=== PATIENT | female | born 1975 | race Caucasian/White ===

== ENCOUNTER 2023-09-01 19:08 | Inpatient (IN) | payer OTHER ==
[~2023-09-01] VITALS: Ht 162.6 cm; Wt 43.0 kg
[2023-09-01] MEDS ORDERED: LEVSOD25 PO (21:45)
[2023-09-01] MEDS ORDERED: ALBU90OI INH (21:46)
[2023-09-01 22:00] VITALS: BP 133/92
[2023-09-01] MEDS ORDERED: NS 1,000 ML IV SCH (22:25)
[2023-09-01] MEDS ORDERED: Ondansetron HCl 2 MG / ML 2ML Vial IV PRN (22:25)
[2023-09-01] MEDS ORDERED: Ipratropium/Albuterol SulF 2.5-0.5MG/3 ML Amp INH PRN (22:25)
[2023-09-01 22:30] VITALS: BP 135/83
[2023-09-01 22:57] LABS: International Normalized Ratio 1.05; Prothrombin Time Results 11.2 Sec (9.7-11.5)
[2023-09-01 23:00] VITALS: BP 132/88
[2023-09-01] MEDS ORDERED: Enoxaparin 40 MG/0.4 ML SYR SC SCH (23:00)
[2023-09-01 23:01] LABS: Free Thyroxine 1.06 ng/dL (0.70-1.60); Magnesium, Blood 2.8 mg/dL (1.6-2.4); Thyroid Stimulating Hormone 0.146 uIU/mL (0.360-4.800)
[2023-09-01 23:30] VITALS: BP 133/95
[2023-09-02] VITALS (74 sets, daily range): BP systolic 97–170; BP diastolic 60–134
[2023-09-02] MEDS ORDERED: MethylPREDNISolone Sod Succ 125 MG Vial IV SCH
[2023-09-02] MEDS ORDERED: Albuterol 2.5 MG/3 ML VIAL INH PRN ×2 (00:15→23:55)
[2023-09-02] MEDS ORDERED: Ipratropium/Albuterol SulF 2.5-0.5MG/3 ML Amp INH SCH (03:00)
[2023-09-02 03:26] LABS: BASOPHILS ABSOLUTE AUTO 0.01 K/mm3 (0.00-0.23); BASOPHILS PERCENT AUTO 0 % (0-2); EOSINOPHILS PERCENT AUTO 0 % (0-6); Hematocrit 43.9 % (33.0-51.0); Hemoglobin 14.6 g/dL (11.5-16.0); IMMATURE GRAN ABSOLUTE AUTO 0.02 K/mm3 (0.00-0.10); IMMATURE GRAN PERCENT AUTO 0 % (0-1); LYMPHOCYTES ABSOLUTE AUTO 0.51 K/mm3 (0.84-5.20); LYMPHOCYTES PERCENT AUTO 5 % (21-46); MONOCYTES ABSOLUTE AUTO 0.22 K/mm3 (0.16-1.47); MONOCYTES PERCENT AUTO 2 % (4-13); Mean Corpuscular HGB 29.8 pg (26.0-34.0); Mean Corpuscular HGB Conc 33.3 g/dL (31.5-36.5); Mean Corpuscular Volume 90 fL (80-100); Mean Platelet Volume 10.9 fL (9.1-12.4); NEUTROPHILS ABSOLUTE AUTO 8.79 K/mm3 (1.96-9.15); NEUTROPHILS PERCENT AUTO 92 % (41-73); Platelet Count 211 K/mm3 (150-400); RDW Coefficient Variation 13.8 % (11.7-14.2); RDW Standard Deviation 44.7 fL (35.1-46.3); White Blood Cell Count 9.55 K/mm3 (4.00-11.30)
[2023-09-02] MEDS ORDERED: Albuterol 2.5 MG/3 ML VIAL INH ONE (03:45)
[2023-09-02] MEDS ORDERED: Budesonide 0.5 MG/2 ML RESP INH SCH (03:50)
[2023-09-02] MEDS ORDERED: LORazepam 2 MG/ML 1ML Injection IV ONE (03:50)
[2023-09-02] MEDS ORDERED: LORazepam 2 MG/ML 1ML Injection IV PRN (03:50)
[2023-09-02 03:51] LABS: Albumin, Blood 3.7 g/dL (3.4-5.0); Bilirubin, Total 0.3 mg/dL (0.1-1.0); Bun/Creatinine Ratio 34.9 (12.0-20.0); Calcium, Blood 9.2 mg/dL (8.5-10.1); Creatinine, Blood 0.49 mg/dL (0.40-1.00); Globulin, Blood 3.8 g/dL (2.2-4.0); Potassium, Blood 4.5 mmol/L (3.5-5.5); Total Protein, Blood 7.5 g/dL (6.4-8.2)
--- NOTE | 2023-09-02 05:58 | NUR ---
PATIENT ADMITTED TO ICU OVERNIGHT. AOX4 AND MOVES ALL EXTREMITIES. SR WITH STABLE BP. 2L NC AND REQUIRED SEVERAL ALBUTEROL TREAMTMENTS. NPO.
--- NOTE | 2023-09-02 07:27 | NUR ---
CARE OF PT ASSUMED AT 0700, BEDSIDE REPORT TAKEN. RT AT BEDSIDE GIVING BREATHING TX (PULMICORT AND DUO NEB). PT IN TRIPOD POSITION. RESP HIGH 30'S. INSP EXP WHEEZES T/O, ALSO TIGHT. FINE CRACKLES TO LEFT SIDE. NS AT 75/HR. TACHY 120-130'S, HTN. DR STEWART CALLED, STAT VBG AND CHEST XRAY ORDERED.
--- NOTE | 2023-09-02 07:42 | NUR ---
SATS 92-95% ON 4L AFTER BREATHING TREATMENT; 88-92% PRIOR TO TREATMENT. CHEST XRAY COMPLETE, AWAITING RESULTS FOR VBG.
[2023-09-02 07:59] LABS: Base Excess Venous 1.5 mmol/L; Bicarbonate Venous 24.3 mmol/L (24.0-30.0); PCO2 Venous 61.6 mmHg (38-42); pH Blood Venous 7.27 (7.34-7.37)
--- NOTE | 2023-09-02 08:19 | NUR ---
CRITICAL PH OF 7.[address] STEW[address]. DR STEWART AT BEDSIDE TO SEE PT. REPEAT VBG ORDERED FOR 1000. MS ORDERED FOR HEADACHE. CPT ORDERED. PUREWICK TO BE PLACED.
[2023-09-02] MEDS ORDERED: Morphine Sulfate 4 MG/1 ML Injection IV PRN (08:20)
[2023-09-02] MEDS ORDERED: Levothyroxine Sodium 0.025 MG Tab PO SCH (09:00)
[2023-09-02] MEDS ORDERED: Azithromycin 500 MG in NS 250 ML IV SCH (09:00)
[2023-09-02 09:58] LABS: PCO2 Venous 53.7 mmHg (38-42); pH Blood Venous 7.32 (7.34-7.37)
[2023-09-02 09:59] LABS: Base Excess Venous 1.6 mmol/L; Bicarbonate Venous 24.9 mmol/L (24.0-30.0)
--- NOTE | 2023-09-02 11:10 | NUR ---
REPEAT VBG IMPROVED. PT HAS RECEIVED MULTIPLE BREATHING TREATMENTS FROM RT. CPT BY RT. KELSEY IN PLACE. MORPHINE HELPED HEADACHE WELL RELAXED HER BREATHING, PT LAYING BACK IN HIGH FOWLERS. INSP/EXP WHEEZES REMAIN BUT LUNGS OVVERALL ARE LESS TIGHT. SATS STABLE ON AIRVO AT 20L/30%. HEART RATE, BP, AND SATS ALL IMPROVED.
--- NOTE | 2023-09-02 13:34 | NUR ---
PUREWICK CANISTER WITH ONLY 50CC URINE. PT DOES NOT FEEL THE NEED TO VOID. BLADDER SCAN SHOWS 798. PT DOES NOT TOLERATE ANY ACTIVITY. DR STEWART CALLED AND GIVEN UPDATE. PRECEDEX AND BIPAP ORDERED IF NEEDED. MARTINEZ TO BE PLACED. VSS, PT LESS LABORED BUT STILL NEEDS TO BE IN TRIPOD POSITION, RESP RATE 30'S. WHEEZES T/O.
--- NOTE | 2023-09-02 15:35 | NUR ---
MORPHINE 2MG BROUGHT IN TO ROOM PRIOR TO PLACING PT BACK FOR MARTINEZ PLACEMENT, PT HAD NEAR 800CC ON BLADDER SCAN AND WAS UNABLE TO VOID. PT REQUESTED TO WAIT ON MORPHINE AND WAS ABLE TO VOID 400CC VIA WICKING SYSTEM. MS LYNDSEY DWYER RN. RT AT BEDSIDE GIVING UPDRAFT. LUNGS CONTINUE TO HAVE WHEEZING T/O, BUT AGAIN RESP'S MUCH LESS LABORED THAN THIS MORNING. PT ABLE TO LAY BACK A LITTLE MORE WITHOUT FEELING TOO SHORT OF BREATH.
--- NOTE | 2023-09-02 17:11 | NUR ---
PT USED CALL LIGHT TO NOTIFIED RN OF WORSENING SOB. WORK OF BREATHING HAS INCREASED BUT PT REMAINS CALM. SATS DOWN TO 90% ON AIRVO. RT AT BEDSIDE AND GAVE UDN. LUNGS VERY TIGHT WITH DECREASED AIR MOVEMENT T/O, WITH LITTLE IMPROVEMENT AFTER BREATHING TX. SATS DID INCREASE AFTER TX TO 97%. PRECEDEX STARTED AT 0.2MCG BIPAP WOULD BE NEXT TREATMENT OPTION. PT AGREE'S TO TRIAL PRECEDEX AND BIPAP.
[2023-09-02] MEDS ORDERED: NS 1,000 ML IV SCH (17:30)
--- NOTE | 2023-09-02 17:51 | NUR ---
PRECEDEX AT 0.4MCG. PT CALM AND RELAXED. RT ABLE TO PLACE BIPAP ON PT, /, RATE 14, 30% FIO2. PT CHINO WELL SO FAR. NS CONTINUES AT 75CC/HR.
--- NOTE | 2023-09-02 19:39 | NUR ---
ASSUMED CARE PT TRIPODDING WHEN FIRST ARRIVING ON SHIFT. PT REQUESTED BREAK FROM BIPAP TO AIRVO; EDUCATED PT ON IMPORTANCE OF KEEPING BIPAP ON MUCH POSSIBLE. SATS ARE MAINTAINING >92%. CURRENTLY SITTING QUIETLY W/ FIANCE AT BEDSIDE.
--- NOTE | 2023-09-02 19:58 | NUR ---
UPDATE PT OFF AIRVO AND BACK ON CPAP (RT CHANGE SETTINGS), RESTING QUIETLY AT THIS TIME.
--- NOTE | 2023-09-02 20:18 | NUR ---
UPDATE PT IS CURRENTLY RESTING OVER BEDSIDE TABLE; PT NODS HEAD WHEN ASKED IF WOB IS BETTER. APPEARS LESS DYSPNEIC AT THIS TIME.
--- NOTE | 2023-09-02 20:27 | NUR ---
UPDATE PT NOT TOLERATING CPAP; BECOMING MORE ANXIOUS AND REQUESTED AIRVO AGAIN. EDUCATION GIVEN ON IMPORTANCE OF CPAP/BIPAP; PT STATES SHE UNDERSTANDS AND IS WILLING TO TRY IT ON "LATER".
[2023-09-02 23:05] LABS: Base Excess Venous 3.5 mmol/L; PCO2 Venous 45.2 mmHg (38-42); pH Blood Venous 7.41 (7.34-7.37)
[2023-09-03] VITALS (53 sets, daily range): BP systolic 99–148; BP diastolic 64–105
[2023-09-03] MEDS ORDERED: LORazepam 2 MG/ML 1ML Injection IV ONE ×2 (00:45)
--- NOTE | 2023-09-03 01:05 | NUR ---
UPDATE PT BACK ON BIPAP; TITRATING PRECEDEX TO ASSIST W/ COMPLIANCE. PT SATS MAINTAINED >92% ON AIRVO SINCE PT REQUESTED REMOVAL OF CPAP. PT RIGHT BEFORE THIS NOTE STATED SHE COULD NOT BREATHE AND BIPAP WAS PUT ON W/ BREATHING TREATMENT GIVEN BY RT. PT CONFIRMS THAT SHE IS LESS DYSPNEIC AT THIS TIME. SATS >92% AT THIS TIME.
--- NOTE | 2023-09-03 02:19 | NUR ---
UPDATE DR BRUNSON AT BEDSIDE TO ASSESS PT W/ ORDERS FOR 0400 VBG. PT IS STILL CURRENTLY ON BIPAP W/ PRECEDEX INFUSING.
[2023-09-03 04:00] LABS: PCO2 Venous 43.8 mmHg (38-42)
[2023-09-03 04:01] LABS: Base Excess Venous 2.2 mmol/L
[2023-09-03 04:29] LABS: Bun/Creatinine Ratio 66.4 (12.0-20.0); Calcium, Blood 8.8 mg/dL (8.5-10.1); Creatinine, Blood 0.47 mg/dL (0.40-1.00); Potassium, Blood 5.1 mmol/L (3.5-5.5)
[2023-09-03] MEDS ORDERED: GuaiFENesin 100 MG/5 ML 5ML UDC PO PRN (05:10)
[2023-09-03 05:16] LABS: Magnesium, Blood 2.6 mg/dL (1.6-2.4)
--- NOTE | 2023-09-03 05:44 | NUR ---
SHIFT SUMMARY PT IS RESTING QUIETLY AT THIS TIME ON BIPAP 10/5 30%; PRECEDEX INFUSING. PT TOLERATING BIPAP W/ REQUESTS FOR 5~MINUTE BREAKS INTERMITTENTLY. PT CONTINUES TO COMPLAIN OF DYSPNEA, BUT WOB APPEARS TO BE LESS THAN AT START OF SHIFT. MORPHINE AND PRECEDEX APPEARS TO WORK WELL. FIANCE AT BEDSIDE T/O SHIFT. DR BRUNSON BY AGAIN THIS AM TO ASSESS PT W/ ORDER FOR PULMONARY CONSULT. LUNG SOUNDS APPEAR TO REMAIN UNCHANGED FROM START OF SHIFT.
--- NOTE | 2023-09-03 08:05 | NUR ---
ASSUMED CARE / DR STEWART: REPORT RECEIVED FROM RODRIGO Ellison RN. ASSUMED CARE OF THIS PT AT APPROX 0700. ON ASSESSMENT, THE PT IS RESTING QUIETLY W/ PRECEDEX INFUSING AT 1.2 MCG/KG/HR. SHE AWAKENS TO VERBAL STIMULUS & IS ABLE TO FOLLOW DIRECTIONS EASILY BUT REMAINS DROWSY W/ RASSS -1/0, A&O TO ALL. LS TIGHT/ WHEEZING T/O, DIM IN BASES. PT ON BIPAP W/ SETTINGS: 10/5 & 30% FIO2, OVERALL TOLERATING WELL W/ PRECEDEX INFUSING. USES AIRVO W/ SETTINGS: 35 L/MIN & 29% FIO2 WHEN TAKING A BREAK FROM BIPAP. MONITOR SHOWS SA W/ HR 60-70s, BP STABLE. NPO R/T RESPIRATORY STATUS, TOLERATING SMALL SIPS OF WATER W/O DIFFICULTY. HX URINARY RETENTION W/ STRAIGHT CATH x1 LAST NIGHT, BLADDER SCAN PRN. SKIN CONDITION OVERALL INTACT, Q2H REPOSITIONING TO MAINTAIN SKIN INTEGRITY. DR STEWART HAS ROUNDED THIS MORNING & VERIFIED THAT DR HOOK WAS CONSULTED LAST NIGHT FOR THIS PT. NO CHANGES AT THIS TIME. WILL CONTINUE TO MONITOR & UPDATE NEEDED.
[2023-09-03] MEDS ORDERED: NS 250 ML IV PRN (09:55)
--- NOTE | 2023-09-03 11:30 | NUR ---
DR HOOK: PROVIDER AT BEDSIDE TO EVAL PT THIS AM. HE HAS DISCUSSED CURRENT POC W/ THE PT & HER SIGNIFICANT OTHER AT BEDSIDE. CONTINUE BIPAP TOLERATED & PRECEDEX TO TREAT ANXIETY/ PROMOTE BIPAP TOLERANCE. AIRVO FOR BREAKS FROM BIPAP. SOME CHANGES MADE TO MEDICATION REGIMEN, OTHERWISE NO CHANGES AT THIS TIME.
[2023-09-03] MEDS ORDERED: Dornase Alfa 1 MG/ML Neb INH SCH (11:45)
[2023-09-03 13:30] LABS: Bicarbonate Venous 25.6 mmol/L (24.0-30.0); PCO2 Venous 46.5 mmHg (38-42); pH Blood Venous 7.38 (7.34-7.37)
[2023-09-03 17:54] LABS: Source, Urine Foley catheter
[2023-09-03 18:05] LABS: Appearance, Urine Clear (Clear); Bilirubin, Urine Neg (Neg); Blood, Urine Neg (Neg); Color, Urine Yellow (P-Yellow); Glucose Qualitative, Urine Neg (Neg); Ketones, Urine 3+ (Neg); Leukocyte Esterase, Urine Neg (Neg); Nitrite, Urine Neg (Neg); Protein, Urine 1+ (Neg); Specific Gravity, Urine 1.025 (1.003-1.022); Urobilinogen, Urine NORM (Normal)
--- NOTE | 2023-09-03 18:33 | NUR ---
SHIFT SUMMARY: NO ACUTE CHANGES SINCE PRIOR UPDATES. PT MOVED FROM ICU-02 TO ICU-15 AT APPROX 1810. SHE REMAINS SEDATED W/ PRECEDEX INFUSING AT 1.1 MCG/KG/HR, RASS -2/-3. AWAKENS TO TACTILE STIMULUS & IS ORIENTED AT THAT TIME. LS TIGHT/ WHEEZING T/O, DIM IN BASES. PT ON BIPAP W/ SETTINGS 14/6 & 30% FIO2, O2 SATS > 92% ON AVG. MONITOR SHOWS SA W/ HR 60-70s, BP STABLE. FULL LIQUID DIET ORDERED TOLERATED W/ GOAL TO GET NUTRITIONAL SUPPLEMENT INTAKE FOR PT WHEN ALERT ENOUGH. MARTINEZ PLACED THIS EVENING FOR CONTINUED URINARY RETENTION WHILE SEDATION INFUSING. SKIN OVERALL INTACT, Q2H REPOSITIONING TO MAINTAIN SKIN INTEGRITY. WILL CONTINUE TO MONITOR & REPORT OFF TO ONCOMING RN.
[2023-09-03] MEDS ORDERED: LORazepam 2 MG/ML 1ML Injection IV PRN (19:40)
--- NOTE | 2023-09-03 20:04 | NUR ---
ASSUMED CARE PT IS RESTING QUIETLY IN BED, LEANING FORWARD ON TABLE. TOLERATING BIPAP AT THIS TIME. HR IN THE 70'S, SPO2 >92%, MAP >65. PT CONTINUES TO BE ANXIOUS, BUT THERAPEUTIC COMMUNICATION APPEARS TO BE EFFECTIVE IN ADDITION TO PHARMACOLOGIC METHODS. PRECEDEX INFUSING W/ ATIVAN AND MORPHINE PRN. REDUCTION IN STIMULI ALSO APPEARS EFFECTIVE. EDUCATION GIVEN ON CARE PLAN AND DISEASE PROCESS. LUNG SOUNDS HAVE WHEEZES BILATERALLY AND TIGHT DIM BASES.
[2023-09-04] VITALS (36 sets, daily range): BP systolic 107–159; BP diastolic 71–109
--- NOTE | 2023-09-04 03:27 | NUR ---
UPDATE PT USED CALL LIGHT D/T FEELING UNABLE TO BREATHE. CURRENTLY ON BIPAP AND PT CONTINUES TO BE DYSPNEIC, BUT STATES IT'S "BETTER". AT TIME OF THIS NOTE PT HAS REQUESTED TO SWITCH FROM BIPAP > AIRVO D/T FEELING WOB WAS WORSE, W/ MINIMAL IMPROVEMENT ON SWITCH. SATS ARE MAINTAINING >92% AND PRECEDEX AT 1.4MCG/KG/HR. RESTING QUIETLY AT THIS TIME. SINUS RHYTHM/20~ RESPIRATORY RATE.
[2023-09-04 03:49] LABS: BASOPHILS ABSOLUTE AUTO 0.01 K/mm3 (0.00-0.23); BASOPHILS PERCENT AUTO 0 % (0-2); EOSINOPHILS PERCENT AUTO 0 % (0-6); Hematocrit 41.4 % (33.0-51.0); Hemoglobin 13.7 g/dL (11.5-16.0); IMMATURE GRAN ABSOLUTE AUTO 0.03 K/mm3 (0.00-0.10); IMMATURE GRAN PERCENT AUTO 0 % (0-1); LYMPHOCYTES ABSOLUTE AUTO 0.66 K/mm3 (0.84-5.20); LYMPHOCYTES PERCENT AUTO 8 % (21-46); MONOCYTES ABSOLUTE AUTO 0.53 K/mm3 (0.16-1.47); MONOCYTES PERCENT AUTO 6 % (4-13); Mean Corpuscular HGB 29.7 pg (26.0-34.0); Mean Corpuscular HGB Conc 33.1 g/dL (31.5-36.5); Mean Corpuscular Volume 90 fL (80-100); Mean Platelet Volume 11.5 fL (9.1-12.4); NEUTROPHILS ABSOLUTE AUTO 7.13 K/mm3 (1.96-9.15); NEUTROPHILS PERCENT AUTO 85 % (41-73); Platelet Count 178 K/mm3 (150-400); RDW Coefficient Variation 13.4 % (11.7-14.2); RDW Standard Deviation 44.6 fL (35.1-46.3); Red Blood Cell Count 4.61 M/mm3 (3.80-5.20); White Blood Cell Count 8.36 K/mm3 (4.00-11.30)
[2023-09-04 04:08] LABS: Bun/Creatinine Ratio 83.5 (12.0-20.0); Calcium, Blood 8.8 mg/dL (8.5-10.1); Creatinine, Blood 0.42 mg/dL (0.40-1.00); Magnesium, Blood 2.4 mg/dL (1.6-2.4); Phosphorus, Blood 2.8 mg/dL (2.5-4.9); Potassium, Blood 4.6 mmol/L (3.5-5.5)
--- NOTE | 2023-09-04 06:43 | NUR ---
SHIFT SUMMARY PT RESTED/SLEPT T/O MOST OF NIGHT W/ INTERMITTENT CALLS FOR BREAK ON AIRVO/BIPAP. PT CONTINUES TO BE ORIENTED X3 W/ PRECEDEX INFUSING. THIS AM PT STATING SHE CANNOT "CATCH A BREATH". DR CARTER CALLED AND UPDATED W/ ORDERS TO PLACE BIPAP BACK ON, 27/12 SETTINGS ON BIPAP. NO OTHER ORDERS AT THIS TIME. SATS CONTINUE TO MAINTAIN >92%; MAP >65; RATE IN THE 70-80'S AND RR IN THE 20'S.
--- NOTE | 2023-09-04 07:35 | NUR ---
ASSUMED CARE: REPORT RECEIVED FROM RODRIGO Ellison RN. ASSUMED CARE OF THIS PT AT APPROX 0700. ON ASSESSMENT, THE PT IS AWAKE & STS FEELING ANXIOUS, THAT SHE "CAN'T DO THIS ANYMORE" WHEN REFERRING TO WEARING THE BIPAP & FEELING SOB. PRECEDEX INFUSING AT 1.4 MCG/KG/HR, SEE EMAR FOR PRN MEDS GIVEN. LS TIGHT/ WHEEZING T/O, DIM IN BASES. PT ON BIPAP W/ CURRENT SETTINGS: 14/8 & 30% FIO2, O2 SATS > 92%. EDYTA Johansen, RT, AT BEDSIDE THIS AM ADJUSTING BIPAP TO PROMOTE PT COMFORT & TOLERANCE. MONITOR SHOWS SA W/ HR 80s, BP STABLE. PT HAS NO CURRENT GI COMPLAINTS, IS CURRENTLY NPO R/T RESPIRATORY STATUS & WOB. IF ABLE TO TAKE BREAK FROM BIPAP, PO INTAKE OF NUTRITIONAL SUPPLEMENTS WILL BE ENCOURAGED. MARTINEZ PATENT/ DRAINING YELLOW URINE. SKIN CONDITION OVERALL INTACT, REPOSITIONING ATTEMPTED BUT PT BEGINS TO EXPERIENCE WORSENING ANXIETY WHEN LAID BACK EVEN SLIGHTLY BEFORE RESUMING TRIPOD POSITION W/ BEDSIDE TABLE IN FRONT OF HER. WILL CONTINUE ATTEMPTING TO FLOAT HIPS Q2H THIS SHIFT. WILL CONTINUE TO MONITOR & UPDATE NEEDED.
[2023-09-04 15:25] LABS: Adenovirus Not Detected (NOT DETECT); Coronavirus 229E Not Detected (NOT DETECT); Coronavirus HKU1 Not Detected (NOT DETECT); Coronavirus NL63 Not Detected (NOT DETECT); Coronavirus OC43 Not Detected (NOT DETECT); Human Metapneumovirus Not Detected (NOT DETECT); Human Rhinovirus/Enterovirus Detected (NOT DETECT); SARS-Cov-2 (COVID-19), BioFire Not Detected (NOT DETECT)
[2023-09-04 15:26] LABS: Bordetella pertussis Not Detected (NOT DETECT); Chlamydophila pneumoniae Not Detected (NOT DETECT); Influenza A/2009-H1 Not Detected (NOT DETECT); Influenza A/H1 Not Detected (NOT DETECT); Influenza A/H3 Not Detected (NOT DETECT); Influenza B Not Detected (NOT DETECT); Mycoplasma pneumoniae Not Detected (NOT DETECT); Parainfluenza Virus 1 Not Detected (NOT DETECT); Parainfluenza Virus 2 Not Detected (NOT DETECT); Parainfluenza Virus 3 Not Detected (NOT DETECT); Parainfluenza Virus 4 Not Detected (NOT DETECT); Respiratory Syncytial Virus Not Detected (NOT DETECT)
--- NOTE | 2023-09-04 17:43 | NUR ---
SHIFT SUMMARY: NO ACUTE CHANGES SINCE PRIOR UPDATES. PT REMAINS OVERALL SEDATED W/ PRECEDEX INFUSING & RASS -2, SEE FLOWSHEET FOR TITRATIONS. SHE DOES CONTINUE TO HAVE INTERMITTENT PERIODS OF ANXIETY THAT ARE PRECIPITATED BY STIMULUS/ CARE MEASURES IN WHICH SHE REQUESTS THAT PRN MEDS BE GIVEN. DURING THESE TIMES SHE HAS VERBALIZED TO THIS RN THAT SHE WOULD LIKE TO BE "PUT UNDER" SO THAT SHE DOESN'T HAVE TO FEEL LIKE SHE "CAN'T GET A BREATH" ANY MORE. RESPONDS WELL TO VERBAL REASSURANCE & PRN MEDS - SEE EMAR. LS WHEEZING/ TIGHT T/O, DIM IN BASES. PT HAS BEEN ON AIRVO W/ SETTINGS: 45 L/MIN & 30% FIO2 FOR MOST OF THE SHIFT & HAS TOLERATED WELL W/ O2 SATS > 92%. MONITOR SHOWS SA W/ HR 70s, BP STABLE. PT HAS TOLERATED A SMALL AMNT OF PO INTAKE THIS AFTERNOON, ENCOURAGED TO DRINK ENSURE. NO BM. MARTINEZ PATENT/ DRAINING DARK YELLOW URINE IN SMALL AMNTS. ENCOURAGED PO INTAKE OF WATER. SKIN OVERALL INTACT, Q2H REPOSITIONING TO MAINTAIN SKIN INTEGRITY. WILL CONTINUE TO MONITOR & REPORT OFF TO ONCOMING RN.
[2023-09-04] MEDS ORDERED: MethylPREDNISolone Sod Succ 40 MG VIAL IV SCH (19:00)
[2023-09-04] MEDS ORDERED: MethylPREDNISolone Sod Succ 125 MG Vial IV SCH (19:00)
[2023-09-04] MEDS ORDERED: LORazepam 2 MG/ML 1ML Injection IV PRN (21:30)
--- NOTE | 2023-09-04 22:41 | NUR ---
ASSUMPTION OF CARE/ASSESSMENT: ASSUMED CARE OF PT AT 1900. PT IN BED, DROWSY BUT WAKES EASILY TO VERBAL STIMULI. PT VERY ANXIOUS WITH ALL INTERACTION/PT CARE AND C/O SOB AND DYSPNEA. PT A&O X 4 AND IS FOLLOWING DIRECTIONS. PT CURRENTLY ON BIPAP WITH SETTINGS 14/8, FIO2 30%; PT VITALS HAVE BEEN STABLE WITH SPO2 94<, RR 18-24, HR 70'S AND SBP 120'S. PT LUNG SOUNDS ARE OVERALL DIM BUT CAN HEAR EXPIRATORY WHEEZES IN R/L UPPER AND MID LOBES. CALL PLACED TO RODRIGO RAILS DEVELOPER TO DISCUSS AXIETY MEDS; PT MAXED OUT ON PRECEDEX AT 1.4 MCG/KG/HR AND RECIEVING PRN ATIVAN AND MORPHINE AND STILL HAVING MODERATE-SEVERE ANXIETY. ORDERS RECIEVED FOR INCREASE DOSE AND FREQUENCY OF ATIVAN FOR ANXIETY MANAGEMENT. AFTER DOSE OF ATIVAN PT RELAXED AND ABLE TO SLEEP. PT DENIES SOB AND CHEST PAIN/PRESSURE AT THIS TIME. PT SINUS RYTHYM ON MONITOR AT THIS TIME. PT HAS DECREASED APPETITE AND LOW PO INTAKE; FLUIDS AND NUTRITIONAL DRINKS OFFERED FREQUENTLY. ABD SOFT AND NON-TENDER; HYPOACTIVE BOWEL TONES NOTED. PT HAS MARTINEZ IN PLACE FOR ACUTE RETENTION; URINE DARK YELLOW. PT MCGUIRE AND ABLE TO CHANGE POSITION IN BED INDEPENDENTLY. BED LOWERED, CALL LIGHT IN REACH. PT SLEEPING AT THIS TIME.
[2023-09-05] VITALS (44 sets, daily range): BP systolic 84–145; BP diastolic 67–93
[2023-09-05 05:30] LABS: PCO2 Arterial 44.3 mmHg (35-45); PO2 Arterial 67.4 mmHg (80-100); pH Blood Arterial 7.44 (7.35-7.45)
--- NOTE | 2023-09-05 05:55 | NUR ---
SHIFT SUMMARY: NO ACUTE CHANGE OVERNIGHT, VSS THROUGHOUT THE SHIFT. PT ON BIPAP WITH SETTINGS 14/6, FIO2 30% FOR MAJORITY OF SHIFT; AIRVO BREAK AROUND 0230 FOR ABOUT 3 HOURS WITH SETTINGS 45 L/MIN AND FIO2 30%. PT STATES BIPAP HAS HELPED WITH HER SOB/DYSPNEA THE MOST AND HAS AGREED TO TRY AND BE ON IT MORE THROUGHOUT THE DAY. PT ABLE TO DRINK 300 ML OF WATER AND HALF OF AN ENSURE THIS SHIFT. PT EDUCATED ON IMPORTANCE OF NUTRITION. PT'S DAMIAN CASTILLO, CALLED UNIT THIS MORNING AND WAS UPDATED ON PT'S PROGRESS AND CURRENT STATUS. 525 URINE OUTPUT THIS SHIFT. BED LOWERED, CALL LIGHT IN REACH.
[2023-09-05] MEDS ORDERED: LORazepam 2 MG/ML 1ML Injection IV ONE (07:45)
--- NOTE | 2023-09-05 08:03 | NUR ---
PT ANXIOUS, STATES IT'S DIFFICULT TO BREATHE AND FEELS IF SHE CAN'T GET ENOUGH AIR. ON BIPAP 14/8 FIO2 30%. LS TIGHT AND DIM T/O WITH FAINT WHEEZING. HAS GOTTEN BREATHING TREATMENTS THIS AM. ON PRECEDEX, PRN MORPHINE AND ATIVAN GIVEN. CALLED DR. MANRIQUE FOR UPDATE, NEW ORDER FOR ONE TIME DOSE OF ATIVAN.
[2023-09-05] MEDS ORDERED: Sertraline HCl 50 MG Tab PO SCH (10:00)
[2023-09-05] MEDS ORDERED: Nicotine 21 MG PATCH TOP SCH (12:00)
[2023-09-05] MEDS ORDERED: Polyethylene Glycol 3350 17 gm PO SCH (12:00)
[2023-09-05] MEDS ORDERED: Thiamine HCl 100 MG Tab PO SCH (18:05)
--- NOTE | 2023-09-05 18:24 | NUR ---
SUMMARY PT DROWSY BUT ORIENTED X4, AWAKENS TO VOICE. ANXIOUS AT TIMES R/T WOB AND FEELING IF SHE CAN'T GET ENOUGH AIR. HAS CONGESTED COUGH WITH [employer]. ON PRECEDEX GTT. ANXIETY GOT BETTER THE DAY WENT ON. STARTED ON ZOLOFT. WORE BIPAP UNTIL ABOUT NOON THEN ON AIRVO. PT TRYING TO DRINK ENSURE AT MEALS BUT WOB MAKES NUTRITION INTAKE DIFFICULT. SPOKE WITH DR. MANRIQUE AND DIETITIAN TODAY ABOUT NUTRITION, NO PLANS FOR PPN OR TUBE FEEDS YET BUT WILL READDRESS IN A COUPLE DAYS IF PT DOES NOT IMPROVE. CT TO R/O PE DONE TODAY. NO OTHER CHANGES TODAY.
--- NOTE | 2023-09-05 21:55 | NUR ---
ASSUME CARE PT IN BED ON AIRVO DURING BSSR. PT COUGH CONGESTED, BUT O2 SATS HAVE REMAINED >90% ON AIRVO AND PT HAS NOT BEEN ABLE TO BRING UP ANY MUCOUS. PT REMAINS ON PRECEDEX AT 1.0 AND IS STILL MILDLY ANXIOUS BUT ABLE TO EXPRESS NEEDS AND ANY DISCOMFORTS. RN HELPED PATIENT SET UP FACETIME WITH FAMILY PATIENT WAS ANXIOUS TO SPEAK WITH THEM. PT MORE DROWSY WHILE SPEAKING ON FACETIME, SWITCHED TO BIPAP ONCE DONE SPEAKING ON PHONE, AT 2210. MARTINEZ REMAIN IN PLACE, DRAINING WELL. PT BOOSTED IN BED, ABLE TO COUGH MORE EFFECTIVELY, BUT STILL NONPRODUCTIVE AT THIS TIME. PT SLIGHTLY CONFUSED ABOUT CURRENT DATE, PT REORIENTED TO DATE AND TIME.
[2023-09-06] VITALS (43 sets, daily range): BP systolic 89–169; BP diastolic 65–104
[2023-09-06 03:54] LABS: BASOPHILS ABSOLUTE AUTO 0.01 K/mm3 (0.00-0.23); BASOPHILS PERCENT AUTO 0 % (0-2); EOSINOPHILS PERCENT AUTO 0 % (0-6); Hematocrit 42.5 % (33.0-51.0); Hemoglobin 14.3 g/dL (11.5-16.0); IMMATURE GRAN ABSOLUTE AUTO 0.01 K/mm3 (0.00-0.10); IMMATURE GRAN PERCENT AUTO 0 % (0-1); LYMPHOCYTES ABSOLUTE AUTO 0.54 K/mm3 (0.84-5.20); LYMPHOCYTES PERCENT AUTO 6 % (21-46); MONOCYTES ABSOLUTE AUTO 0.52 K/mm3 (0.16-1.47); MONOCYTES PERCENT AUTO 5 % (4-13); Mean Corpuscular HGB 29.7 pg (26.0-34.0); Mean Corpuscular HGB Conc 33.6 g/dL (31.5-36.5); Mean Corpuscular Volume 88 fL (80-100); Mean Platelet Volume 11.8 fL (9.1-12.4); NEUTROPHILS ABSOLUTE AUTO 8.64 K/mm3 (1.96-9.15); NEUTROPHILS PERCENT AUTO 89 % (41-73); Platelet Count 163 K/mm3 (150-400); RDW Coefficient Variation 13.3 % (11.7-14.2); RDW Standard Deviation 43.8 fL (35.1-46.3); Red Blood Cell Count 4.81 M/mm3 (3.80-5.20); White Blood Cell Count 9.72 K/mm3 (4.00-11.30)
[2023-09-06 04:11] LABS: Albumin, Blood 3.1 g/dL (3.4-5.0); Anion Gap 10 mmol/L (3-11); Blood Urea Nitrogen 22 mg/dL (8-24); Bun/Creatinine Ratio 61.8 (12.0-20.0); CO2, Blood 27 mmol/L (21-32); Calcium, Blood 8.4 mg/dL (8.5-10.1); Chloride, Blood 104 mmol/L (98-108); Creatinine, Blood 0.36 mg/dL (0.40-1.00); Glomerular Filtration Rate 127 (60-); Glucose, Blood 129 mg/dL (70-99); Phosphorus, Blood 2.7 mg/dL (2.5-4.9); Potassium, Blood 4.1 mmol/L (3.5-5.5); Sodium, Blood 137 mmol/L (136-145)
--- NOTE | 2023-09-06 06:19 | NUR ---
SHIFT SUMMARY PT RESTED COMFORTABLY OVERNIGHT ON BIPAP WITH FEW BREAKS. PT REMAINS ANXIOUS WHEN AWAKE BUT IS ABLE TO RETURN TO SLEEP EASILY. NO ATIVAN GIVEN OVERNIGHT, PRECEDEX GTT REMAINS ON AT 1.0. PT PIVS REMAIN IN PLACE, MARTINEZ REMAINS IN PLACE AND PATENT. PT STATES FEELING MORE ANXIOUS WHEN OFF BIPAP AND ON AIRVO OVERNIGHT PT IS WORRIED THAT SHORTNESS OF BREATH/FEELING UNABLE TO BREATHE WILL RETURN.
[2023-09-06] MEDS ORDERED: Albuterol 2.5 MG/3 ML VIAL INH PRN (08:45)
[2023-09-06 10:30] LABS: Base Excess Venous 2.7 mmol/L; Bicarbonate Venous 26.7 mmol/L (24.0-30.0); PCO2 Venous 39.5 mmHg (38-42); pH Blood Venous 7.44 (7.34-7.37)
[2023-09-06] MEDS ORDERED: LORazepam 2 MG/ML 1ML Injection IV ONE (15:10)
[2023-09-06] MEDS ORDERED: Magnesium Hydroxide Conc 10 ML UDC PT PRN (17:05)
[2023-09-06] MEDS ORDERED: Docusate Sodium 100 MG UDC PT PRN (17:05)
[2023-09-06] MEDS ORDERED: Bisacodyl 10 MG Supp PR PRN (17:05)
--- NOTE | 2023-09-06 17:52 | NUR ---
SUMMARY PT STARTED THE DAY VERY ANXIOUS, DYSPNEIC, AND INCREASED BP. STATED SHE COULDN'T BREATH AND THAT IT HURT TO BREATHE. PT ON PRECEDEX GTT AND PRN MORPHINE AND ATIVAN GIVEN. COULD NOT TAKE A BREAK FROM BIPAP EVEN FOR SHORT PERIOD. ATTEMPTED ANOTHER BREAK FROM BIPAP AROUND NOON AND PT COULD NOT TOLERATE IT EVEN FOR A FEW MINUTES. ATTEMPTED AGAIN AT 14OO AND PT LASTED ABOUT 20 MINUTES ON AIRVO BEFORE GOING BACK ON BIPAP. DR. JOHN WANTS TO LIMIT SEDATION. GOT PRECEDEX DOWN TO 0.4MCG/KG/HR BUT PT BECAME ANXIOUS AGAIN WITH SAME SYPMTOMS EARLIER IN THE SHIFT. PRECEDEX INCREASED TO 0.8MCG/KG/HR PER DR. JOHN THEN ONE DOSE OF IV ATIVAN GIVEN. LS REMAIN TIGHT T/O. DISCUSSED NUTRITION AGAIN DURING ROUNDS TODAY. THIS EVENING IT WAS DECIDED TO PLACE DOBHOFF FOR TUBE FEEDS. PT TOLERATED WELL AND CONFIRMED WITH XRAY BY DR. JOHN. TUBE FEEDS STARTED PER DIETITIAN. PT SITTING UP IN BED TEXTING ON PHONE NOW. PT HAD A VISIT FROM FAMILY TODAY WHICH HELPED HER SPIRITS.
--- NOTE | 2023-09-06 19:59 | NUR ---
ASSUMED CARE OF PT AT 1900. REPORT RECEIED. PT PRESENTS IN BED. 25/12 WITH 30 PERCENT FIO2 PER BIPAP. PT ALERT AND ORIENTED. PLEASANT AND COOPERATIVE WITH CARE AND ASSESSMENT. DID HAVE PT CHANGE TO 5 L/M O2 PER NASAL CANNULA FOR HER TO ASSIST WITH ORAL CARE. PT WITH SLOW MOVEMENTS TO PERFORM ORAL CARE SO ASSISTANCE WAS NEEDED. PT ABLE TO SPEAK IN FULL SENTENCES MOSTLY. RESPIRATORY THERAPY COMES TO ROOM AND ADMINISTERS SCHEDULED TREATMENTS. PT TEACHING ON DISEASE PROCESS AND MEDICATIONS. WILL REVIEW CHART AND PLAN OF CARE FOR THIS PT.
--- NOTE | 2023-09-06 20:41 | NUR ---
PT CURRENTLY WEARING AIRVO AND TOLERATING THIS WELL. PT UNDERSTANDS THAT SHE SHOULD CALL IF SHE BEGINS TO GET SOB AND TO NOT LET IT ESCALATE.
--- NOTE | 2023-09-06 21:36 | NUR ---
PT CALLS AND REQUESTS TO BE BACK ON BIPAP. THIS DONE. PT'S ANXIETY LEVEL INCREASES SOME DURING THIS BUT SHE WAS ABLE TO KEEP HERSELF CALM.
[2023-09-07] VITALS (33 sets, daily range): BP systolic 96–138; BP diastolic 64–90
[2023-09-07 04:12] LABS: Albumin, Blood 2.9 g/dL (3.4-5.0); Anion Gap 8 mmol/L (3-11); Blood Urea Nitrogen 22 mg/dL (8-24); CO2, Blood 28 mmol/L (21-32); Calcium, Blood 8.3 mg/dL (8.5-10.1); Chloride, Blood 105 mmol/L (98-108); Glomerular Filtration Rate 124 (60-); Glucose, Blood 140 mg/dL (70-99); Phosphorus, Blood 2.5 mg/dL (2.5-4.9); Sodium, Blood 137 mmol/L (136-145)
--- NOTE | 2023-09-07 05:54 | NUR ---
PT HAS TAKEN A FEW BREAKS FROM BIPAP THIS NIGHT. HAS BEEN ABLE TO REST. HAS HAD PERIODS WHEREAS SHE BECOMES ANXIOUS, THOUGH IS ABLE TO CALM WITH REASSURANCE. PT HAS MAINTAINED OXYGEN SATURATIONS > 90 PERCENT. RESPIRATORY THERAPY HAS DECREASED BIPAP TO 12/8. FIO2 AT 35 PERCENT. PT CONTINUES WITH TUBED FEED AT GOAL. NO GI DISTRESS NOTED. WILL CONTINUE TO MONITOR PT, AND WILL REPORT OFF TO ONCOMING RN.
[2023-09-07] MEDS ORDERED: Acetaminophen 325 MG TABLET PO PRN (06:40)
--- NOTE | 2023-09-07 07:00 | NUR ---
ASSUME CARE: I have assumed care of this patient.
[2023-09-07] MEDS ORDERED: Protein Supplement 30 ML UD PT SCH (09:00)
[2023-09-07] MEDS ORDERED: Multivitamins-Minerals Liquid 15 ML Oral Syringe PT SCH (09:00)
--- NOTE | 2023-09-07 10:08 | NUR ---
FAMILY UPDATE: Pt's son, John, updated via telephone.
--- NOTE | 2023-09-07 15:17 | NUR ---
TUBE FEED: Rate increased to 30 mls/hr per order.
--- NOTE | 2023-09-07 18:02 | NUR ---
SHIFT SUMMARY: Pt transitioned to Airvo from BIPAP successfully today. Tube feed rate increased. Pt does note some abdominal tenderness and distension. She does not know her last BM. No BM this shift. Pt received PRN bowel meds and reports increased sensations of movement in her abdomen. She declined further medications. Precedex continues for anxiety. Pt drank small sips of water and ensure throughout the day. SO at bedside.
--- NOTE | 2023-09-07 20:00 | NUR ---
ASSUMED CARE OF PT AT 1900. REPORT RECEIVED AT BEDSIDE. PT PRESENTS IN BED. ALERT AND ORIENTED. PLEASANT AND COOPERATIVE WITH CARE AND ASSESSMENT. HAS VISITOR AT BEDSIDE. PT DOES VOICE THAT SHE IS FEELING SOMEWHAT ANXIOUS AT THIS TIME. WEARING AIRVO. DOES REQUEST TO HAVE BIPAP MASK PLACED BACK ON. THIS DONE FOR PT. WILL REVIEW CHART AND PLAN OF CARE FOR THIS PT.
[2023-09-08] VITALS (25 sets, daily range): BP systolic 89–121; BP diastolic 67–84
[2023-09-08 04:06] LABS: BASOPHILS ABSOLUTE AUTO 0.03 K/mm3 (0.00-0.23); BASOPHILS PERCENT AUTO 0 % (0-2); EOSINOPHILS PERCENT AUTO 0 % (0-6); Hematocrit 42.2 % (33.0-51.0); Hemoglobin 14.1 g/dL (11.5-16.0); IMMATURE GRAN ABSOLUTE AUTO 0.09 K/mm3 (0.00-0.10); IMMATURE GRAN PERCENT AUTO 1 % (0-1); LYMPHOCYTES ABSOLUTE AUTO 0.48 K/mm3 (0.84-5.20); LYMPHOCYTES PERCENT AUTO 3 % (21-46); MONOCYTES ABSOLUTE AUTO 0.62 K/mm3 (0.16-1.47); MONOCYTES PERCENT AUTO 4 % (4-13); Mean Corpuscular HGB 29.9 pg (26.0-34.0); Mean Corpuscular HGB Conc 33.4 g/dL (31.5-36.5); Mean Corpuscular Volume 90 fL (80-100); Mean Platelet Volume 11.4 fL (9.1-12.4); NEUTROPHILS ABSOLUTE AUTO 15.73 K/mm3 (1.96-9.15); NEUTROPHILS PERCENT AUTO 93 % (41-73); Platelet Count 154 K/mm3 (150-400); RDW Coefficient Variation 13.6 % (11.7-14.2); RDW Standard Deviation 44.6 fL (35.1-46.3); Red Blood Cell Count 4.71 M/mm3 (3.80-5.20); White Blood Cell Count 16.95 K/mm3 (4.00-11.30)
[2023-09-08 04:28] LABS: Alanine Aminotransfer (ALT/SGP 43 U/L (12-78); Albumin, Blood 2.9 g/dL (3.4-5.0); Alk Phos 47 U/L (50-136); Anion Gap 6 mmol/L (3-11); Aspartate Aminotrans (AST/SGOT 16 U/L (12-37); Bilirubin, Total 0.6 mg/dL (0.1-1.0); Blood Urea Nitrogen 26 mg/dL (8-24); CO2, Blood 30 mmol/L (21-32); Calcium, Blood 8.7 mg/dL (8.5-10.1); Chloride, Blood 106 mmol/L (98-108); Creatinine, Blood 0.45 mg/dL (0.40-1.00); Globulin, Blood 2.9 g/dL (2.2-4.0); Glomerular Filtration Rate 120 (60-); Glucose, Blood 153 mg/dL (70-99); Magnesium, Blood 2.1 mg/dL (1.6-2.4); Phosphorus, Blood 3.4 mg/dL (2.5-4.9); Potassium, Blood 4.4 mmol/L (3.5-5.5); Sodium, Blood 138 mmol/L (136-145); Total Protein, Blood 5.8 g/dL (6.4-8.2)
--- NOTE | 2023-09-08 06:32 | NUR ---
HAVE DECREASED PRECEDEX DRIP TO 0.7 MCG'S/KG/HOUR. PT HAS TOLERATED DECREASE WELL. THIS AM, PT WAS GIVEN OPTION TO GO ON AIRVO OR REMAIN WITH BIPAP. SHE OPTS TO STAY WITH BIPAP FOR THE TIME BEING. 10/6 BIPAP WITH 35 PERCENT FIO2. MAINTAINS OXYGEN SATURATIONS > 90 PERCENT. WILL CONTINUE TO MONITOR PT, AND WILL REPORT OFF TO ONCOMING RN.
[2023-09-08] MEDS ORDERED: ALPRAZolam 0.25 MG Tab PO PRN (15:35)
--- NOTE | 2023-09-08 18:01 | NUR ---
SHIFT SUMMARY: Pt started on PRN xanex this afternoon to slowly titrate precedex off. She is tolerating tube feeds well. Milk of mag given with mirilax this morning with no effect. Pt taking small sips of water and apple juice throughout the day. Avila patent and draining to gravity. Pt has declined turns today and is able to reposition herself in bed. Posterior skin reassessed with sheet change at end of shift; Coccyx with mild blanchable redness, no breakdown noted. Pt has been educated on the importance of repositioning frequently.
--- NOTE | 2023-09-08 19:35 | NUR ---
ASSUMED CARE AT 1900. REPORT RECEIVED. PT PRESENTS IN BED. ALERT AND ORIENTED. PLEASANT AND COOPERATIVE WITH CARE AND ASSESSMENT. DENIES NEEDS AT THIS TIME. PT'S S.O. IN ROOM. WILL ROOM IN FOR THIS NIGHT. WILL REVIEW CHART AND PLAN OF CARE FOR THIS PT.
[2023-09-08] MEDS ORDERED: MethylPREDNISolone Sod Succ 40 MG VIAL IV SCH (21:00)
--- NOTE | 2023-09-08 21:11 | NUR ---
AIRVO SETTINGS. 30 LITERS WITH 39 PERCENT FIO2. NO DYSPNEA. PRECEDEX DROPPED FROM 0.5 MCG'S/KG/HOUR TO 0.4MCG'S WILL MONITOR FOR ABILITY TO TITRATE FURTHER. PT DOES HAVE PRN XANAX.
[2023-09-09] VITALS (24 sets, daily range): BP systolic 107–165; BP diastolic 73–105
--- NOTE | 2023-09-09 07:00 | NUR ---
ASSUME CARE: I have assumed care of this patient.
--- NOTE | 2023-09-09 07:10 | NUR ---
PT CONTINUES THROUGHOUT THE NIGHT WITH AIRVO. HAS BEEN TURNING HERSELF IN BED. S.O HAS SPENT THE NIGHT. PT VERBALIZES THAT SHE IS STARTING TO FEEL BETTER. TOLERATING TUBE FEEDING AT GOAL. REPORT GIVEN TO ONCOMING RN.
[2023-09-09] MEDS ORDERED: PredniSONE 20 MG Tab PO SCH (12:00)
--- NOTE | 2023-09-09 15:43 | NUR ---
Pt appears calm this afternoon. She smiled and gave a thumbs up when I smiled at her, told her I've been keeping an eye on her from afar, and heard she is needing less 02. If she is open, would like to discuss smoking cessation, as she has both asthma and COPD. It may be too early yet for that conversation, but will check in again and with bedside RN tomorrow before deciding.
--- NOTE | 2023-09-09 16:07 | NUR ---
PROVIDER UPDATE: Dr Gong updated on pt status. This RN noted concern regarding pt's temperature and elevated heart rate. Her elevated WBC was discussed this morning. Sputum culture ordered.
--- NOTE | 2023-09-09 18:24 | NUR ---
SHIFT SUMMARY: Pt worked with PT and was up to chair for a few hours today. She was given two doses of PRN xanex for anxiety and one dose of PRN zofran for nausea. Avila removed and replaced with purewick. Pt has yet to void. Medium soft BM. IV's patent and saline locked. Tube feeds continue at goal.
--- NOTE | 2023-09-09 19:48 | NUR ---
ASSUMPTION OF CARE BEDSIDE SHIFT REPORT RECEIVED FROM DAYSHIFT RN. PT RESTING IN BED, ALERT AND ORIENTED X4. PT ANSWERS QUESTIONS, FOLLOWS DIRECTION WHEN PROMPTED AND IS ABLE TO MAKE NEEDS KNOWN. PT MOVES EXTREMITIES EQUALLY BIALTERALLY. HR 90-110'S SINUS, MAP >65. PT ON AIRVO 30L 41%, OXYGEN SATURATION >95%, PT DENIES SOB AT REST. PT HAS OCCASIONAL NONPRODUCTIVE COUGH. ABDOMEN SOFT, DENIES NAUSEA AT TIME OF ASSESSMENT, BOWEL TONES ACTIVE IN ALL FOUR QUADRANTS PUREWICK IN PLACE DRAINING YELLOW URINE. PIV IN PLACE TO RFA AND LFA SL. BED IN LOWEST POSITION, CALL LIGHT WITHIN REACH, CARE CONTINUES.
[2023-09-09] MEDS ORDERED: Melatonin 5 MG Tablet PO PRN (19:50)
[2023-09-10] VITALS (15 sets, daily range): BP systolic 107–128; BP diastolic 70–90
[2023-09-10 03:35] LABS: BASOPHILS ABSOLUTE AUTO 0.07 K/mm3 (0.00-0.23); BASOPHILS PERCENT AUTO 0 % (0-2); EOSINOPHILS ABSOLUTE AUTO 0.03 K/mm3 (0.00-0.68); EOSINOPHILS PERCENT AUTO 0 % (0-6); Hematocrit 48.8 % (33.0-51.0); Hemoglobin 16.3 g/dL (11.5-16.0); IMMATURE GRAN ABSOLUTE AUTO 0.24 K/mm3 (0.00-0.10); IMMATURE GRAN PERCENT AUTO 1 % (0-1); LYMPHOCYTES PERCENT AUTO 8 % (21-46); MONOCYTES ABSOLUTE AUTO 1.71 K/mm3 (0.16-1.47); MONOCYTES PERCENT AUTO 10 % (4-13); Mean Corpuscular HGB 29.7 pg (26.0-34.0); Mean Corpuscular HGB Conc 33.4 g/dL (31.5-36.5); Mean Corpuscular Volume 89 fL (80-100); Mean Platelet Volume 12.2 fL (9.1-12.4); NEUTROPHILS ABSOLUTE AUTO 13.32 K/mm3 (1.96-9.15); NEUTROPHILS PERCENT AUTO 80 % (41-73); Platelet Count 203 K/mm3 (150-400); RDW Coefficient Variation 13.8 % (11.7-14.2); RDW Standard Deviation 44.9 fL (35.1-46.3); Red Blood Cell Count 5.48 M/mm3 (3.80-5.20); White Blood Cell Count 16.67 K/mm3 (4.00-11.30)
[2023-09-10 03:53] LABS: Albumin, Blood 3.4 g/dL (3.4-5.0); Anion Gap 7 mmol/L (3-11); Blood Urea Nitrogen 28 mg/dL (8-24); Bun/Creatinine Ratio 59.3 (12.0-20.0); CO2, Blood 32 mmol/L (21-32); Calcium, Blood 9.3 mg/dL (8.5-10.1); Chloride, Blood 103 mmol/L (98-108); Creatinine, Blood 0.47 mg/dL (0.40-1.00); Glomerular Filtration Rate 119 (60-); Glucose, Blood 101 mg/dL (70-99); Phosphorus, Blood 3.7 mg/dL (2.5-4.9); Potassium, Blood 3.8 mmol/L (3.5-5.5); Sodium, Blood 138 mmol/L (136-145)
--- NOTE | 2023-09-10 05:37 | NUR ---
SHIFT SUMMARY NO ACUTE CHANGES THIS SHIFT. PT ALERT AND ORIENTED, PT HAS NOT BEEN ABLE TO SLEEP THIS SHIFT, DECLINES MELATONIN. ANSWERS QUESTIONS APPROPRIATELY, FOLLOWS DIRECTION WHEN PROMPTED, ABLE TO MAKE NEEDS KNOWN. PT MOVES ALL EXTREMITIES EQUALLY BILATERALLY. HR 90-110'S SINUS, MAP >65. PT ON AIRVO 30L 41%, OXYGEN SATURATION >95%, PT DECLINES DYSPNEA AT REST. ABDOMEN SOFT, DOBHOFF IN PLACE WITH VHP INFUSING AT GOAL RATE OF 30MLS/HR WITH A 30ML Q4H WATER FLUSH, PT TOLERATING WELL. PT HAS COMPLAINED OF NAUSEA ONCE THIS SHIFT, MEDICATED PER EMAR. PT HAD PUREWICK IN PLACE THE MAJORITY OF THIS SHIFT, PT STATES THAT SHE IS ABLE TO VERBALIZE WHEN SHE HAS TO VOID, PUREWICK REMOVED FOR PT COMFORT. PIV IN PLACE TO RFA AND LFA SL. BED IN LOWEST POSITION, CALL LIGHT WITHIN REACH, CARE CONTINUES.
--- NOTE | 2023-09-10 09:00 | NUR ---
ASSUMED CARE / DR JOHN: REPORT RECEIVED FROM JESSICA Angulo RN. ASSUMED CARE OF THIS PT AT APPROX 0700. ON ASSESSMENT, THE PT IS A&O TO ALL, CALM & COOPERATIVE W/ CARE MEASURES. SHE STS FEELING LITTLE TO NO ANXIETY AT THIS TIME & THAT HER BREATHING IS "MUCH BETTER." LS CLEAR, DIM IN BASES. PT ON 3L NC W/ O2 SATS > 92%. MONITOR SHOWS SR-ST W/ HR 90-100s, BP STABLE. DOBHOFF IN PLACE TO LEFT NARE AT 62 CM DEPTH. TUBE FEEDS OF VHP INFUSING AT GOAL RATE OF 30 ML/HR. NO S/SX INTOLERANCE NOTED AT THIS TIME, PT WILL NOTIFY IF GI UPSET OCCURS. PT REFUSED BOWEL CARE MEDS THIS AM, HAD BM YESTERDAY & WILL NOTIFY IF FEELING MEDS ARE NEEDED AGAIN TODAY. PT ABLE TO USE LIFT HIPS & USE BEDPAN FOR URINARY VOID THIS AM W/O DIFICULTY. SKIN OVERALL INTACT, SCATTERED AREAS OF ECCYMOSIS NOTED TO EXTREMITIES & RIGHT SIDE OF MANDIBLE. PT REPOSITIONS SELF PRN FOR COMFORT. DR JOHN AT BEDSIDE THIS AM TO EVAL PT. HE FEELS THAT SHE IS OKAY TO BE TRANSFERRED TO PCU STATUS. VBG ORDERED FOR 1400 TO DETERMINE IF THE PT WILL NEED TO BE ON BIPAP AT NIGHT. CONTINUE TO ENCOURAGE PO INTAKE OF NUTRITIONAL SUPPLEMENTS W/ INTENT TO REMOVE DOBHOFF IN THE NEXT DAY OR TWO IF PT IS ABLE TO ADEQUATELY TAKE PO FOOD/ FLUIDS. NO OTHER CHANGES AT THIS TIME. WILL CONTINUE TO MONITOR & UPDATE NEEDED.
[2023-09-10 14:07] LABS: PCO2 Venous 50.4 mmHg (38-42); pH Blood Venous 7.44 (7.34-7.37)
[2023-09-10 14:08] LABS: Base Excess Venous 9.8 mmol/L; Bicarbonate Venous 31.6 mmol/L (24.0-30.0)
[2023-09-10 14:50] LABS: ALPHA-1-ANTITRYPSIN 124 mg/dL (90-200)
--- NOTE | 2023-09-10 15:10 | NUR ---
TRANSFER TO U: REPORT HAS BEEN GIVEN TO BENNY Galarza RN. PT TRANSFERRED TO [facility] AT APPROX 1510 BY PIPPA [id number]. CHART & ALL BELONGINGS HAVE BEEN TAKEN OVER W/ PT AT THAT TIME.
--- NOTE | 2023-09-10 17:22 | NUR ---
SHIFT SUMMARY: RECEIVED PT TO PCU AT APPROX 1515 AFTER RECEIVING REPORT FROM FIDEL PERDUE. PT ARRIVES VIA W/C, TRANSFERS SELF W/MINIMAL ASSISTANCE. PT IS A&Ox4, ANSWERING QUESTIONS APPROPRIATELY, ABLE TO MAKE NEEDS KNOWN. O2 SATS >92% ON 3 L/MIN NC, LS CLEAR/DIM. PT DENIES CP, SR/ST ON MONITOR W/RATE 90s-100s. DOBHOFF IN PLACE TO R NARE, CONTINUES AT GOAL RATE. PT TRANSFERING SELF TO[facility]FROM [facility]SBA. PT RESTING QUIETLY IN ROOM W/CALL LIGHT IN REACH. WILL CONTINUE TO MONITOR AND TREAT ACCORDINGLY.
[2023-09-11 03:21] VITALS: BP 114/83
--- NOTE | 2023-09-11 04:51 | NUR ---
SHIFT NOTE: PT A/OX4 ABLE TO MAKE NEEDS KNOWN. SHE USES THE CALL LIGHT APPROPRIATELY AND TRANSFER 1P ASSIST TO THE BEDSIDE COMMODE. SHE IS ABLE TO MOVE ABOUT IN BED INDEPENDENTLY. SHE IS ON 3L NC WITH SPO2>90% DENIES SOB. SHE IS ON TELE IN NSR 90S WITH NO ACUTE CHANGES OVERNIGHT, DENIES CHEST PAIN/PRESSURE. DOBHOFF IN RIGHT SIDE OF NOSE HAS A CONTINUOUS FEED PER ORDERS, PT TOLERATING WELL. PT STATES SHE HAS TROUBLE SLEEPING AND HAS BEEN AWAKE UNTIL 0430 BUT DENIES ORDERED MELATONIN. WILL CONTINUE TO MONITOR AND REPORT TO ONCOMING RN.
[2023-09-11 08:10] VITALS: BP 120/84
--- NOTE | 2023-09-11 10:45 | NUR ---
PT IS A/O X4. SHE ANSWERS QUESTIONS APPROPRIATELY IN FULL SENTENCES. SHE DENIES CP OR SOB. LUNG SOUNDS ARE CLEAR T/O, SHE CONTINUES TO BE ON 3L O2 VIA NASAL CANNULA WHICH SHE IS TOLERATING WELL. SHE DENIES CP OR SOB. SR NOTED ON MONITOR. SHE CONTINUES TO HAVE POOR APPETITE, SHE ASKS WHEN FEEDING TUBE CAN BE REMOVED SHE IS REMINDED THAT SHE WILL FIRST NEED TO SHOW THAT SHE IS ABLE TO TAKE IN PO INTAKE. SHE STATES THAT SHE ENJOYS ICE CREAM, I DID ORDER HER ICE CREAM ALONGSIDE HER LUNCH IN HOPES OF STIMULATING HER APPETITE, DR AVALOS IS AWARE. FEEDING RATE CONTINUES AT 30ML/HR. SHE IS SBA TO BSC
[2023-09-11 11:42] VITALS: BP 116/87
--- NOTE | 2023-09-11 15:23 | NUR ---
Spiritual care visit conducted. Patient is lying sitting on the EOB and alert. We talks at length about the family unit complications from the past and the good and inspiring family that she has currently. She speaks of the challenging medical problems and how exhausting it has been. We discuss her spiritual journey and her inner strength. I normalize her experience and provide therapeutic listening and prayer. PAtient responded well and showed signs finding rest and encouragement. I will remain available to patient and family.
[2023-09-11 16:30] VITALS: BP 106/87
--- NOTE | 2023-09-11 18:56 | NUR ---
End of shift note. Pt remains on tube feedings of goal rate of 30mL/hr. When questioned about eating/ nutrition goals; Pt reported that she does not like the sugary options that are on her Full Liquid diet. MD was phoned this afternoon for an order to increase diet to regular diet, as tolerated. Pt tolerated a regular diet for dinner. Pt seems to be motivated about getting DHT out. Pt has been OOB to the [facility] commode to void. Pt is able to maintain O2 sats with movement. Pt will be encouraged to try and ambulate into the bathroom with the next void. Pt is able to make needs known, call light is within reach.
[2023-09-11 20:00] VITALS: BP 116/71
[2023-09-11 23:16] VITALS: BP 102/79
[2023-09-12 03:46] VITALS: BP 101/66
--- NOTE | 2023-09-12 05:18 | NUR ---
1915 Assumed care of pt, bedside report completed. Shift pln of care reviewed with patient, all questions answered. Pt appeared to sleep well this shift. Repeatedly denies pain. VSS and able to maintain O2 Sat on 1-1.5lpm via NC. [place] with continuous tube feeding at goal rate of 30ml/hr with 30ml q4hr water flush. Pt PO intake is improving, pt hoping to have DH removed today. Please see full assessment for any additional details. No further complaints or concerns at this time, will continue to monitor.
[2023-09-12 07:19] VITALS: BP 102/64
[2023-09-12] MEDS ORDERED: PredniSONE 20 MG Tab PO SCH (09:00)
[2023-09-12 11:35] VITALS: BP 106/83
[2023-09-12 15:52] VITALS: BP 102/84
--- NOTE | 2023-09-12 17:54 | NUR ---
SHIFT SUMMARY PT IS A/O X 4. USES CALL LIGHT APPROPRIATELY AND EXPRESSES NEEDS. PT WAS TRITRATED FROM 1L NC TO RA, SATING IN LOW 90'S AND NO REPORTS OF SOB. PT UTILIZED NEBULIZER THROUGHOUT THE DAY. LOWER LUNGS DIMINISHED, UPPER LUNGS CLEAR. PT'S HR HAS BEEN SR/ST OF 100-110'S. NO REPORTS OF CP OR CHEST TIGHTNESS THROUGH OUT THE SHIFT. BP'S HAVE BEEN STABLE. DOBHOFF WAS REMOVED PER ORDERS. ENCOURAGED ORAL FOOD INTAKE. NO COMPLAINTS OF TROUBLE URINATING OR BM. PER OT, PT IS ABLE TO TRANSFER FOM BED TO CHAIR WITHOUT ASSISTANCE, MUST STILL CALL FOR HELP TO THE BATHROOM. PT HAS A BRUISE ON HER RIGHT CHIN, DOES NOT KNOW HOW SHE GOT IT. PT IS SITTING IN CHAIR WITH CALL LIGHT IN REACH.
--- NOTE | 2023-09-12 18:41 | NUR ---
TRANSFER UPDATE REPORT GIVEN TO MED FLOOR RN AT [id number]. PT RECIEVING NEBULIZER TREATMENT. [facility] FLOOR RN NOTIFIED.
[2023-09-12 19:43] VITALS: BP 120/79
--- NOTE | 2023-09-12 20:01 | NUR ---
TRANSFER NOTE- PT WAS TRANSFERED TO MEDICAL FLOOR AT THE TIME OF SHIFT CHANGE. RECIEVED REPORT FROM OCCUPATIONAL HEALTH AND SAFETY MANAGER VIA PHONE AND PASSED ON AT THE TIME OF SHIFT CHANGE. PT ALERT AND ORIENTED, INDEPENDENT IN THE ROOM, NO S&S OF DISTRESS NOTED.
[2023-09-13 03:24] VITALS: BP 110/82
--- NOTE | 2023-09-13 04:43 | NUR ---
SHIFT SUMMARY PT A&OX4 AND PLEASANT. NO C/O PAIN. PT DENIED FEELING SOB AND WAS SATING GREATER THAN 90% ON RA DURING THE NIGHT. PT REQUEST SANDWICH BEFORE BED TIME AND TOLERATED SNACK WELL. VSS. CALLS APPROPRIATLY. BED IN LOWEST POSITION AND CALL LIGHT IN REACH.
[2023-09-13 05:53] LABS: Calcium, Blood 8.7 mg/dL (8.5-10.1); Creatinine, Blood 0.43 mg/dL (0.40-1.00); Magnesium, Blood 2.1 mg/dL (1.6-2.4); Potassium, Blood 3.9 mmol/L (3.5-5.5)
[2023-09-13 07:40] VITALS: BP 100/76
[2023-09-13] MEDS ORDERED: BUDESONIDE0.5 MG/2 M INH (10:06)
[2023-09-13] MEDS ORDERED: IPRAT-ALBUT 0.5-3 ML INH (10:06)
[2023-09-13] MEDS ORDERED: MULVITA PO (10:07)
[2023-09-13] MEDS ORDERED: MELATONIN5 M1 PO (10:07)
[2023-09-13] MEDS ORDERED: LIQUACEL PO (10:08)
[2023-09-13] MEDS ORDERED: MIRALAX17 GM PO (10:08)
[2023-09-13] MEDS ORDERED: B-1100 M1 PO (10:09)
[2023-09-13] MEDS ORDERED: SERT50 PO (10:09)
[2023-09-13] MEDS ORDERED: Prednisone10 MG PO (10:10)
--- NOTE | 2023-09-13 17:20 | NUR ---
DISCHARGE NOTE- PT AND FAMILY WERE GIVEN VERBAL AND WRITTEN DISCHARGE INSTRUCTIONS AND ACKNOWLEDGED UNDERSTANDING OF THEM. PT WALKER WAS DELIVERED BY CHRISTIANNE AND SHE WAS ESCORTED OUT VIA WC BY THE [employer] ATTENDANT. NO S&S OF DISTRESS NOTED AT THE TIME OF DISCHARGE.
[2023-09-14] MEDS ORDERED: Enoxaparin 30 MG/0.3 ML SYR SC SCH (09:00)
== END 2023-09-13 16:10 | disposition home health service (06) | DRG 189 ==
LOC: ICUE 19:08 → PRE IP 19:19 → PCU 21:21 → ICUE 21:21 → PCU 09-10 15:09 → MEDS 09-12 19:02
PROVIDERS: Internal Medicine; Internal Medicine Critical Care Medicine; Student in an Organized Health Care Education/Training Program; ADMIT Internal Medicine
PROC: 5A0935A Assistance with Respiratory Ventilation, Less than 24 Consecutive Hours, High Flow/Velocity Cannula (ICD-10-PCS; principal; 2023-09-02)
PROC: 0DH67UZ Insertion of Feeding Device into Stomach, Via Natural or Artificial Opening (ICD-10-PCS; 2023-09-02)
PROC: 5A09457 Assistance with Respiratory Ventilation, 24-96 Consecutive Hours, Continuous Positive Airway Pressure (ICD-10-PCS; 2023-09-02)
PROC: 4A033R1 Measurement of Arterial Saturation, Peripheral, Percutaneous Approach (ICD-10-PCS; 2023-09-05)
DX: J96.01 Acute respiratory failure with hypoxia (principal); E43 Unspecified severe protein-calorie malnutrition; J45.52 Severe persistent asthma with status asthmaticus; R64 Cachexia; J44.1 Chronic obstructive pulmonary disease with (acute) exacerbation; Z68.1 Body mass index [BMI] 19.9 or less, adult; E03.9 Hypothyroidism, unspecified; J43.9 Emphysema, unspecified; E06.3 Autoimmune thyroiditis; F10.90 Alcohol use, unspecified, uncomplicated; R39.11 Hesitancy of micturition; B97.89 Other viral agents as the cause of diseases classified elsewhere; F41.9 Anxiety disorder, unspecified; F17.210 Nicotine dependence, cigarettes, uncomplicated; Z99.81 Dependence on supplemental oxygen; Z79.890 Hormone replacement therapy; Z79.891 Long term (current) use of opiate analgesic
CPT/HCPCS: 0202U; 36415; 36600; 51701; 51702; 71045; 71260; 80048; 80053; 80069; 82103; 82803; 83735; 83880; 84100; 84439; 84443; 85025; 85610; 87070; 87077; 87186; 87205; 94640; 94644; 94645; 94660; 94664; 94667; 94668; 94760; 94762; 97110; 97112; 97161; 97165; 97530; 97535; A9270; C1751; J0456; J1650; J2060; J2270; J2405; J2920; J2930; J7030; J7050; J7512; Q9967